=== PATIENT | male | born 2000 | race Two or more races ===

== ENCOUNTER 2024-10-02 23:07 | Emergency (ER) | payer MEDICAID ==
[~2024-10-02] VITALS: Ht 182.9 cm; Wt 100.7 kg
[2024-10-02 23:10] VITALS: BP 133/91; PULSE 91; RESP 16; O2SAT 98
--- NOTE | 2024-10-03 00:32 | Physician Documentation ---
HPI ~ General Chief Complaint: Tooth Problem Stated Complaint: TOOTH ABCESS Time Seen by MD: 00:28 History of Present Illness HPI Comment 24-year-old male who presents with dental pain. He tells me that he has a bad tooth in the left lower side. Over the past several days to a week, he has had increased swelling and pain around this region. Now his left cheek is also swollen. He states it is difficult to eat because of the pain. He did take Tylenol with partial relief. No fevers, chills. No inability to swallow. No difficulty breathing. No history of dental infection. No allergies to antibiotics Medication Reconciliation Allergies: Coded Allergies: No Known Allergies (Unverified , 10/02/24) Scheduled Amox Tr/Potassium Clavulanate (Augmentin 875-125 Tablet), 1 TAB PO Q12H Review of Systems Constitutional: Denies: fever ENT: Reports: mouth pain Physical Exam Vital Signs: Temperature: 97.1, Source: Temporal, Heart Rate: 91, Respiratory Rate: 16, BP: 133/91, Pulse Oximetry: 98, Weight: 100.700 Oxygen Flow Rate: 0 Physical Exam General: This is a healthy-appearing young man sitting calmly in bed HEENT: Atraumatic, oropharynx is moist. The patient has obvious swelling to the left cheek and on external exam has mild tenderness to palpation over the left jaw. No significant erythema or skin rashes. On oral exam, he has tenderness to percussion of the posterior left lower molars. No evidence of periapical abscess. No swelling under the tongue or in the posterior throat. He does have slightly decreased mouth opening due to pain. Heart: Mild tachycardic, appears regular Lungs: Cnormal work of breathing, normal oxygen saturation on room air Neuro: Alert and oriented Psychiatric: Calm and cooperative with exam Procedures Nerve Block Nerve Block Site: Left inferior alveolar dental block Anesthetic Used: bupivacaine Volume Anesthetic (ccs): 4 Tolerated Procedure Well?: yes, no complications Procedure Note Verbal consent obtained after discussing risks and benefits. Using bupivacaine, a inferior alveolar dental block was performed, with good pain control. No significant bleeding or other complications. The patient tolerated well. Progress Results/Orders Results/Orders Completed Orders - JESUS BOUDREAUX MD Bupivacaine/Pf Inj (Sensorcaine 0.75% Vi (10/03/24 00:30) Amox Tr/Potassium Clavulanate (Augmentin (10/03/24 00:30) Bupivacaine 0.5% W/Epi/Pf (Sensorcaine-E (10/03/24 00:43) Sterile Talc Powder (Steritalc Powder Vi (10/03/24 00:50) Bupivacaine 0.5% Inj/Pf (Sensorcaine 0.5 (10/03/24 01:12) Medications Received in ER Medications (Trade) Dose Ordered Sig/Valeria Route PRN Reason Start Time Stop Time Status Last Admin Dose Admin (Augmentin 875-125mg tablet) 1 tab ONCE ONCE PO 10/03/24 00:30 10/03/24 00:31 DC 10/03/24 00:40 1 TAB Vital Signs 10/02/24 10/03/24 23:10 01:43 Temp 97.1 97.1 Pulse 91 Resp 16 B/P (MAP) 133/91 Pulse Ox 98 O2 Flow Rate 0 Medical Decision Making Differential Dx:Considerations: Include: Facial Cellulitis, Periapical abscess, Peridontal abscess, Pulpitis Additional Comment The patient presents with dental pain and facial swelling. On exam he has findings consistent with a dental infection with mild facial cellulitis, but no evidence of periapical abscess or deep space neck infection. A dental block was performed for pain control. He will be treated with Augmentin. He was given home care instructions and return precautions including for signs of worsening infection or deep space neck infection. He will follow up with a dentist. Departure Time of Disposition: 01:35 Disposition: HOME / SELF CARE / HOMELESS Impression: Primary Impression: Dental infection Additional Impression: Facial cellulitis Condition: Improved Discharge Instructions: Dental Pain Referrals: NO PRIMARY CARE PROVIDER (PCP) Prescriptions Amox Tr/Potassium Clavulanate (Augmentin 875-125 Tablet) 1 Each Tablet 1 TAB PO Q12H for 7 Days, #14 TAB Prov: JESUS BOUDREAUX MD 10/03/24 Education Educated: Patient Educated regarding: diagnosis, treatment, need for follow up Signature Scribe Signature: black Attestation: JESUS Toth MD Oct 03, 2024 00:32
[2024-10-03] MEDS: amox tr/potassium clavulanate 875/125mg TAB PO ONE (00:40)
[2024-10-03] MEDS ORDERED: BUPIVAcaine 0.5% W/EPI /PF 10ml vial IJ STA (00:43)
[2024-10-03] MEDS: BUPIVAcaine/PF 7.5 mg/ml (0.75%) 30ml vial IJ ONE (00:46)
[2024-10-03] MEDS ORDERED: sterile talc powder 5 GM, BUPIVAcaine 0.5% inj/PF 37.5 MG in normal saline 50ml IV soln... IPL ONE (00:50)
[2024-10-03] MEDS ORDERED: AMOX-117 PO (01:36)
[2024-10-03] MEDS: BUPIVAcaine 0.5% inj/PF 30 ML ONE (01:42)
[2024-10-03 01:43] VITALS: TEMP 97.1
== END 2024-10-03 02:10 | disposition home or self-care (01) ==
LOC: ER 23:08
DX: K04.7 Periapical abscess without sinus (principal); L03.211 Cellulitis of face
CPT/HCPCS: 64400; 99284